=== PATIENT | female | born 1990 | race Caucasian/White ===

== ENCOUNTER 2016-11-30 15:50 | Emergency (ER) | payer BC ==
[2016-11-30 16:02] VITALS: BP 120/71
--- NOTE | 2016-11-30 17:00 | UC ---
Throat Pain/Nasal Celestine HPI - HPI Summary HPI Summary: 26 y/o female presents to the urgent care c/o sore throat since yesterday. Pt states difficulty swallowing, sabrina is 6/10 associated with RODRIGUEZ. She took tylenol this morning and she felt better. Pt denies cough, fever, SOB, chest pain, N/V/ D. She is a teacher. - History of Current Complaint Chief Complaint: UCRespiratory Stated Complaint: SORE THROAT Time Seen by Provider: 11/30/16 16:53 Hx Obtained From: Patient Hx Last Menstrual Period: 11/16/16 ?: No Onset/Duration: Gradual Onset, Lasting Days - 1 day Severity: Moderate Pain Intensity: 6 Pain Scale Used: 0-10 Numeric Cough: None Associated Signs & Symptoms: Positive: Dysphagia. Negative: Sinus Discomfort, Nasal Discharge, Fever - Epiglottits Risk Factors Epiglottis Risk Factors: Negative - Allergies/Home Medications Allergies/Adverse Reactions: Allergies Allergy/AdvReac Type Severity Reaction Status Date / Time Penicillins Allergy Anaphylatic Verified 11/30/16 15:56 Shock PMH/Surg Hx/FS Hx/Imm Hx Previously Healthy: Yes - Surgical History Surgical History: Yes Surgery Procedure, Year, and Place: ONE C-SECT - Family History Known Family History: Positive: Diabetes - Social History Occupation: Employed Full-time Lives: With Family Alcohol Use: Rare Substance Use Type: None Smoking Status (MU): Never Smoked Tobacco - Immunization History Most Recent Influenza Vaccination: NOT IN 2016 Review of Systems Constitutional: Negative Skin: Negative Eyes: Negative ENT: Sore Throat Respiratory: Negative Cardiovascular: Negative Gastrointestinal: Negative Genitourinary: Negative Motor: Negative Neurovascular: Negative Musculoskeletal: Negative Neurological: Headache Psychological: Negative All Other Systems Reviewed And Are Negative: Yes Physical Exam Triage Information Reviewed: Yes Appearance: Well-Appearing, No Pain Distress, Well-Nourished, Obese Vital Signs: Initial Vital Signs Temp 97.9 F 11/30/16 15:58 Pulse 88 11/30/16 15:58 Resp 18 11/30/16 15:58 BP 120/71 11/30/16 15:58 Pulse Ox 98 11/30/16 15:58 Vital Signs Reviewed: Yes Eye Exam: Normal Eyes: Positive: Conjunctiva Clear - PERRLA, EOMI ENT Exam: Normal ENT: Positive: Normal ENT inspection, Hearing grossly normal, Pharyngeal erythema - mild exudate, TMs normal, Tonsillar swelling, Tonsillar exudate - B/L Dental Exam: Normal Neck exam: Normal Neck: Positive: Supple, Nontender, No Lymphadenopathy Respiratory Exam: Normal Respiratory: Positive: Chest non-tender, Lungs clear, Normal breath sounds Cardiovascular Exam: Normal Cardiovascular: Positive: RRR, No Murmur, Pulses Normal Abdominal Exam: Normal Abdomen Description: Positive: Nontender, Soft. Negative: CVA Tenderness (R), CVA Tenderness (L) Bowel Sounds: Positive: Present Musculoskeletal Exam: Normal Musculoskeletal: Positive: Strength Intact, ROM Intact, No Edema Neurological Exam: Normal Psychological Exam: Normal Skin Exam: Normal Throat Pain/Nasal Course/Dx - Course Course Of Treatment: 26 y/o female presents to the urgent care c/o sore throat since yesterday. Pt states difficulty swallowing, sabrina is 6/10 associated with RODRIGUEZ. She took tylenol this morning and she felt better. Pt denies cough, fever, SOB, chest pain, N/V/D. She is a teacher. Hx obtained. Rapid strep ordered, result: negative. Viral pharyngitis.Pt Rx ibuprofen PO to alleviates symptoms of pain and swelling. Advised on hand washing to avoid spreading. If symptoms do not improve or worsen advised to return to the urgent care or f/u with her PCP for further evaluation and treatment. Pt understood and agreed - Differential Dx/Diagnosis Differential Diagnosis/HQI/PQRI: Influenza, Laryngitis, Mononucleosis, Pharyngitis, Sinusitis, Tonsillitis, URI Provider Diagnoses: 1- Viral pharyngitis Discharge - Discharge Plan Condition: Stable Disposition: HOME Prescriptions: Ibuprofen TAB* [Motrin TAB* 800 MG] 800 mg PO Q6H #20 tab Patient Education Materials: Pharyngitis (ED) Referrals: Luis Garces,Luis [Medical Doctor] - 3 Days Additional Instructions: 1-Please take ibuprofen PO q6-8hrs prn as instructed after meals to alleviate pain and swelling.Rest, increase fluids and eat well. Avoid strenuous exercise. 2-If symptoms do not improve or worsen please return to the urgent care or f/u with your PCP for further evaluation and treatment.
== END 2016-11-30 17:07 | disposition home or self-care (01) ==
LOC: UCCORT 15:50
DX: J02.9 Acute pharyngitis, unspecified (principal); Z88.0 Allergy status to penicillin
CPT/HCPCS: 87651; 99212; G0463

== ENCOUNTER 2017-11-30 18:03 | Emergency (ER) | payer BC ==
[2017-11-30 19:14] VITALS: BP 122/75
--- NOTE | 2017-11-30 19:50 | UC ---
UC General HPI - HPI Summary HPI Summary: diarrhea x 6 to 7 days, most recently with bright red blood with stool. Has been passing 6 to 7 stools per day associated with diffuse abdominal pain, no vomiting. Well water at home, last tested 2 years ago, but no family members have been ill. Drinking well, voiding well, no fever or headache. No fever. No travel. No recent use of antibiotics, no infectious contacts. 10 pounds weight loss in the past 3 months with intent. appetite normal. FH neg for IBD - History of Current Complaint Chief Complaint: UCGI Stated Complaint: DIARRHEA Time Seen by Provider: 11/30/17 19:31 Hx Obtained From: Patient Hx Last Menstrual Period: "3 WEEKS AGO" Onset/Duration: Sudden Onset, Lasting Days - 7 Timing: Intermittent Episodes Lasting: - minutes Onset Severity: Moderate Pain Intensity: 6 - Allergy/Home Medications Allergies/Adverse Reactions: Allergies Allergy/AdvReac Type Severity Reaction Status Date / Time Penicillins Allergy Anaphylatic Verified 11/30/17 18:59 Shock Home Medications: Home Medications Norethindrone-Ethinyl Estrad [Necon 0.5-35-28 Tablet] 1 tab DAILY 11/30/17 [ History Confirmed 11/30/17] ValACYclovir (*) [Valtrex 500 mg (*)] 250 mg DAILY 11/30/17 [History Confirmed 11/30/17] PMH/Surg Hx/FS Hx/Imm Hx Previously Healthy: Yes - Surgical History Surgical History: Yes Surgery Procedure, Year, and Place: C-SECT - Family History Known Family History: Positive: Diabetes, Other Family History: Neg history of ulcerative colitis or Crohn's disease. - Social History Occupation: Employed Full-time Lives: With Family Alcohol Use: Occasionally Substance Use Type: None Smoking Status (MU): Never Smoked Tobacco - Immunization History Most Recent Influenza Vaccination: NOT IN 2017 Most Recent Tetanus Shot: UTD Review of Systems Constitutional: Negative Skin: Negative Eyes: Negative ENT: Negative Respiratory: Negative Cardiovascular: Negative Gastrointestinal: Abdominal Pain, Diarrhea Genitourinary: Negative Motor: Negative Neurovascular: Negative Musculoskeletal: Negative Neurological: Negative Psychological: Negative Is Patient Immunocompromised?: No All Other Systems Reviewed And Are Negative: Yes Physical Exam Triage Information Reviewed: Yes Appearance: Well-Appearing, No Pain Distress, Obese Vital Signs: Initial Vital Signs Temp 97.8 F 11/30/17 19:04 Pulse 78 11/30/17 19:04 Resp 16 11/30/17 19:04 BP 122/75 11/30/17 19:04 Pulse Ox 100 11/30/17 19:04 ENT: Positive: Pharynx normal Neck: Positive: Supple, Nontender, No Lymphadenopathy Respiratory: Positive: Lungs clear, Normal breath sounds Cardiovascular: Positive: RRR, No Murmur Abdomen Description: Positive: No Organomegaly, Soft, Other: - mild diffuse tenderness without guarding or rebound. Negative: Distended, Guarding Bowel Sounds: Positive: Hypoactive Musculoskeletal Exam: Normal Neurological Exam: Normal Psychological Exam: Normal Skin Exam: Normal Course/Dx - Course Course Of Treatment: imodium, begin diagnositic testing. - Differential Dx - Multi-Symptom Provider Diagnoses: acute diarrhea, prolonged. Discharge - Sign-Out/Discharge Documenting (check all that apply): Patient Departure All imaging exams completed and their final reports reviewed: No Studies - Discharge Plan Condition: Stable Disposition: HOME Patient Education Materials: Acute Diarrhea (ED), Nutrition Tips for Relief of Diarrhea (ED) Referrals: Franck Aguirre MD [Primary Care Provider] - Additional Instructions: Lab work to look for inflammation and blood count, kidney and liver functions has been done. Continue eating, with review of tips for eating with diarrhea. You can use imodium 2mg taking 2 tablets after the next loose stool, and up to 4 tablets per day. Please schedule visit with Dr. Aguirre for early next week to review labs. Stool testing takes about 36 hours after submission of samples. Lab results will be available tomorrow afternoon. - Billing Disposition and Condition Condition: STABLE Disposition: Home
[2017-12-01 10:48] LABS: Hematocrit 41 % (35-47); Hemoglobin 13.5 g/dl (12.0-16.0); Mean Corpuscular HGB Conc 33 g/dl (31-36); Mean Corpuscular Hemoglobin 32 pg (27-31); Mean Corpuscular Volume 95 fL (80-97); Red Blood Count 4.27 10^6/ul (4.00-5.40); Red Cell Distribution Width 13 % (10.5-15); White Blood Count 11.1 10^3/ul (3.5-10.8)
[2017-12-01 11:17] LABS: ABS Basophils 0.1 10^3/ul (0-0.2); ABS Eosinophils 0.3 10^3/ul (0-0.6); ABS Lymphocytes 3.9 10^3/ul (1.0-4.8); ABS Monocytes 0.9 10^3/ul (0-0.8); ABS Neutrophils 5.9 10^3/ul (1.5-7.7); ABS Nucleated RBC 0 10^3/ul; Eosinophil % 2.7 % (0-6); Lymphocyte % 35.5 % (25-47); Mean Platelet Volume 9.7 um3 (7.4-10.4); Nucleated Red Blood Cells % 0.3; Platelet Count 330 10^3/ul (150-450)
[2017-12-01 11:18] LABS: EGFR Non-African American 83.6 (>60)
--- NOTE | 2017-12-01 21:49 | UC ---
- Progress Note Progress Note: + c diff -some other cultures are pending -STOP immodium -needs to take flagyl 500mgs tid x 14 days. do not drink ETOH. -this is very contagious by direct contact. wash hands thoroughly Discharge - Sign-Out/Discharge Documenting (check all that apply): Post-Discharge Follow Up All imaging exams completed and their final reports reviewed: No Studies - Discharge Plan Condition: Stable Disposition: HOME Patient Education Materials: Acute Diarrhea (ED), Nutrition Tips for Relief of Diarrhea (ED) Referrals: Franck Aguirre MD [Primary Care Provider] - Additional Instructions: Lab work to look for inflammation and blood count, kidney and liver functions has been done. Continue eating, with review of tips for eating with diarrhea. You can use imodium 2mg taking 2 tablets after the next loose stool, and up to 4 tablets per day. Please schedule visit with Dr. Aguirre for early next week to review labs. Stool testing takes about 36 hours after submission of samples. Lab results will be available tomorrow afternoon. - Billing Disposition and Condition Condition: STABLE Disposition: Home
== END 2017-11-30 20:29 | disposition home or self-care (01) ==
LOC: UCCORT 18:03
DX: R19.7 Diarrhea, unspecified (principal); Z88.0 Allergy status to penicillin
CPT/HCPCS: 36415; 80053; 84443; 85025; 86140; 87045; 87046; 87328; 87329; 87493; 87899; 99211; G0463

== ENCOUNTER 2017-12-17 07:30 | Emergency (ER) | payer BC ==
[2017-12-17 07:47] VITALS: BP 114/72
--- NOTE | 2017-12-17 07:56 | UC ---
Throat Pain/Nasal Celestine HPI - HPI Summary HPI Summary: 27-year-old female with no past medical history presents with 2 days of fever and sore throat not associated with cough. Patient measured fever of 101 at home last night, not relieved with Tylenol. Patient has multiple sick contacts , works at a high school. No prior episodes. No vomiting or worsening factors. Small amount of soreness with swallowing, has not greatly affected by mouth intake. No trouble breathing, no wheezing - History of Current Complaint Stated Complaint: SORE THROAT,FEVER Time Seen by Provider: 12/17/17 07:36 Hx Last Menstrual Period: "3 WEEKS AGO" - Allergies/Home Medications Allergies/Adverse Reactions: Allergies Allergy/AdvReac Type Severity Reaction Status Date / Time Penicillins Allergy Anaphylatic Verified 12/17/17 07:39 Shock Home Medications: Home Medications Ibuprofen TAB* [Advil TAB*] 600 mg PO Q8H PRN 12/17/17 [History Confirmed ] PMH/Surg Hx/FS Hx/Imm Hx - Additional Past Medical History Additional PMH: No history of strep in the past, no history of diabetes, no other past medical history Previously Healthy: Yes - Surgical History Surgical History: Yes Surgery Procedure, Year, and Place: C-SECT - Family History Known Family History: Positive: Diabetes, Other Family History: Neg history of ulcerative colitis or Crohn's disease. - Social History Alcohol Use: Occasionally Substance Use Type: None Smoking Status (MU): Never Smoked Tobacco - Immunization History Most Recent Influenza Vaccination: NOT IN 2017 Most Recent Tetanus Shot: UTD Review of Systems Constitutional: Fever, Fatigue Skin: Negative Eyes: Negative ENT: Sore Throat Respiratory: Negative Cardiovascular: Negative Gastrointestinal: Negative Genitourinary: Negative All Other Systems Reviewed And Are Negative: Yes Physical Exam - Summary Physical Exam Summary: Gen: alert, in no acute distress HEENT: EOMI, normocephalic, atruamatic, bilateral tonsillar enlargement and exudates visualized Neck: supple, tender cervical lymphadenopathy CV: Normal s1 s2, no murmurs Resp: normal breath sounds b/l GI: no tenderness, no masses Musculoskeletal: normal ROM all 4 extremities Skin: no rash Lymph: Tender anterior cervical lymphadenopathy Psych: appropriate affect, oriented Triage Information Reviewed: Yes Throat Pain/Nasal Course/Dx - Course Course Of Treatment: Rapid strep negative, antibiotic treatment not indicated at this time, patient given instructions for supportive care, instructed to return for any worsening or concerning symptoms and to see primary care physician promptly. Agrees to and understands discharge instructions. In no acute distress. - Differential Dx/Diagnosis Provider Diagnoses: Sore throat Discharge - Sign-Out/Discharge Documenting (check all that apply): Patient Departure All imaging exams completed and their final reports reviewed: No Studies - Discharge Plan Condition: Stable Disposition: HOME Prescriptions: Benzocaine/Menthol HANNAH* [Chloraseptic HANNAH*] 1 hannah MT Q2H PRN #12 lozenge PRN Reason: Sore Throat Patient Education Materials: Pharyngitis (ED) Forms: *Work Release Referrals: Franck Aguirre MD [Primary Care Provider] - Additional Instructions: PLEASE MAKE AN APPOINTMENT TO BE SEEN BY A PRIMARY CARE DOCTOR WITHIN 1 WEEK - Billing Disposition and Condition Condition: STABLE Disposition: Home
== END 2017-12-17 08:16 | disposition home or self-care (01) ==
LOC: UCCORT 07:30
DX: J02.9 Acute pharyngitis, unspecified (principal); Z88.0 Allergy status to penicillin
CPT/HCPCS: 87651; 99212; G0463

== ENCOUNTER 2018-06-05 07:17 | Emergency (ER) | payer BC ==
--- OUTSIDE RECORDS SUMMARY | 2018-06-05 07:25 | XMS REPORT | Continuity of Care Document ---
:1990 External Reference #:[id number] Author Name Patsy Allen PA Address [phone] [facility] [place] [address] Care Team Providers Name Role Phone Rodger Mclean M.D. Care Team Information Principal Technical Writer Unavailable Patsy Allen PA Primary Care Physician Unavailable Payers Date Identification Numbers Payment Provider Subscriber Policy Number: [id number] Jelena Ngoc Rushing PayID: [id number] [address] [address] [place] [address] Expires: 2016 Policy Number: Angel/Grisel Gonzalez Ngoc Rushing [id number] PayID: [id number] [address] [place] [address] Advance Directives Description No Information Available Problems Description No Information Family History Date Family Member(s) Observation Comments Father Diabetes Father Stroke Mother Depression Mother Anxiety : (age 82 Paternal Grandfather due to Old-Age Years) Paternal Grandmother Heart Attack : (age 57 Maternal Grandfather due to Heart Disease Years) : (age 68 Maternal Grandmother due to Premature Heart Years) Attack Social History Type Date Description Comments Sex Unknown Lives With 31 Years Solo Lives With 3 Years Son Moe Diet Healthy, Well Balanced Reduced carbs nearly completely. No soda or juice. Drinks water. 1 cup of coffee a day. Salad for lunch. Protein and vegetable for dinner. Yogurt and fruit for breakfast. Occupation Currently Working [employer] ETOH Use Occasionally consumes alcohol Tobacco Use Start: Unknown Patient has never smoked Smoking Status Reviewed: 05/23/18 Patient has never smoked Enjoy Exercising Patient enjoys exercising Walks daily Bowflex TM 45 minutes 5 days a week. Allergies, Adverse Reactions, Alerts Date Description Reaction Status Severity Comments 01/17/2018 Penicillin Active hives and throat closes Medications Medication Date Status Form Strength Qnty SIG Indications Ordering Provider Escitalopram 05/23/ Active Tablets 10mg 30tabs 1/2 by mouth F41.9 Felipe Oxalate 2019 daily during MD Anny first week, then increase to 1 by mouth every day Magnesium 05/23/ Active Tablets 400mg 90tabs 1 by mouth R51 Felipe2018 every day MD Anny for the prevention of headache Vitamin B-2 05/23/ Active Tablets 100mg 90tabs 1 by mouth R51 Felipe2018 every day MD Anny for prevention of headache Women's One A 01/17/ Active 1 cap po 2017 once a day MD Anny Multivitamin Valacyclovir / Active Tablets 1gm Unknown HCL 0000 Nortrel 135 / Active Tablets 1-35mg-mcg Earl (28) 0000 CONSTANTINO Modi Immunizations Description No Information Available Vital Signs Date Vital Result Comment 05/23/2018 4:28pm BP Systolic 126 mmHg BP Diastolic 78 mmHg Heart Rate 78 /min Respiratory Rate 18 /min Height 64 inches 5'4" Weight 263.00 lb BMI (Body Mass Index) 45.1 kg/m2 BSA (Body Surface Area) 2.20 m2 Harts body weight in kilograms 54 kg O2 % BldC Oximetry 97 % Ra 01/17/2018 2:02pm BP Systolic Sitting Right Arm 112 mmHg BP Diastolic Sitting Right Arm 76 mmHg Body Temperature 98.5 F Heart Rate 108 /min Height 64 inches 5'4" Weight 261.25 lb BMI (Body Mass Index) 44.8 kg/m2 BSA (Body Surface Area) 2.19 m2 Harts body weight in kilograms 54 kg O2 % BldC Oximetry 95 % 05/24/2007 3:22pm Height 63.5 inches 5'3.50" Weight 155.00 lb Results Test Date Facility Test Result H/L Range Note CBC 05/03/2018 [facility] [address] White Blood 8.4 K/uL N 3.1-10.7 1 W/Automated [address] [place] [address] [phone] Red Blood Count 4.08 M/uL N 3.90-5.40 Hemoglobin 12.9 gm/dL N 11.6-15.8 Hematocrit 38.7 % N 36.0-46.1 Mean Cell Volume 94.9 fl N 80.9-99.0 Mean Corpuscular HGB 31.6 pg N 25.9-32.7 Mean Corpuscular HGB Conc 33.3 g/dL N 30.8-34.3 Platelet Count 380 K/uL High 155-360 Red Cell Distri Width SD 40.9 fl N 36-47 Red Cell Distri Width %CV 12.0 % N 11.7-14.4 Mean Platelet Volume 11.2 fL N 8.9-12.4 Neut% 50.9 % N 40.4-72.8 Lymph % 41.2 % N 20.0-42.0 Davison % 6.8 % N 4.3-13.2 Eo% 0.9 % N 0.0-6.6 Bas% 0.2 % N 0.0-1.1 Neut# 4.29 K/uL N 1.8-7.0 Lymph # 3.47 K/uL N 1.0-4.0 Davison # 0.57 K/uL N 0.3-0.9 Eos # 0.08 K/uL N 0.0-0.5 Baso # 0.02 K/uL N 0.0-0.1 Comprehensive Metabolic 05/03/2018 [facility] [address] Glucose 93 mg/dL N 74 -106 Panel [address] [place], [place] [id number] [phone] BUN 9 mg/dL N 7-18 Creatinine 0.8 mg/dL N 0.6-1.3 Glom Filtration Rate, Estimate >60 mL/min >60 If >60 mL/min >60 2 BUN/Creat 11.2 ratio Sodium 141 mmol/L N 136-145 Potassium 3.8 mmol/L N 3.5-5.1 Chloride 107 mmol/L N 98-107 Carbon Dioxide 26 mmol/L N 21-32 Anion Gap 8 mEq/L N 8-16 Calcium 7.9 mg/dL Low 8.5-10.1 Total Protein 6.9 g/dL N 6.4-8.2 Albumin 3.4 g/dL N 3.4-5.0 Globulin 3.5 g/dL N 1.9-4.3 Alb/Glob 1.0 ratio Bilirubin,Total 0.4 mg/dL N 0.2-1.0 Sgot/Ast 17 U/L N 15-37 SGPT/Alt 28 U/L N 12-78 Alkaline Phosphatase 61 U/L N 45-117 Glycohemoglobin A1c 05/03/[address] Glycohemoglobin 5.2 % N 4.2-6.3 3 [address] [facility] (A1c) [place] [address] [phone] eAG 103 mg/dL LDL Cholesterol Profile 05/03/[address] Cholesterol 172 mg/dL <[address] [place] [address] [phone] Triglycerides 104 mg/dL <150 5 HDL Cholesterol 62 mg/dL >40 6 LDL-Cholesterol 89 mg/dL < 100 7 Laboratory test 05/03/[address] Thyroid Stim 1.71 uIU/mL N 0.30-4.[address] [place] [address] [place] [address] [phone] Urine Dipstick 01/17/2018 [facility] Ua Color yellow Yellow Ua Clarity cloudy Clear Ua Leuko moderate Negative Ua Nitrite negative Negative Ua Urobilinogen 0.2 0.2 - 1.0 E.U./dL Ua Protein negative Negative Ua PH 6.5 6.5-7.5 Ua Blood trace Negative Ua Specific [place] 1.020 1.010-1.030 Ua Ketones negative Negative Ua Bilirubin negative Negative Ua Glucose negative Negative 1 E66.9 2 Note: Persistent reduction for 3 months or more in an eGFR <60 mL/min/1.73 m2 defines CKD. Patients with eGFR values >/=60 mL/min/1.73 m2 may also have CKD if evidence of persistent proteinuria is present. The original MDRD equation for estimated GFR is not valid for patients less than 18 years of age. Additional information may be found at www.kdoqi.org. 3 Elevated levels of HbA1c suggest the need for more aggressive treatment of glycemia. The [place] [employer] Association recommends that a primary goal of therapy should be a HbA1c of <7% and that physicians should re-evaluate the treatment regimen in patients with HbA1c values consistently >8%. 4 Reference Guidelines*: Desirable: ........... < 200 mg/dL Borderline High: ..... 200-239 mg/dL High: ................ >=240 mg/dL * The National Cholesterol Education Program (NCEP) 5 Reference Guidelines*: Normal: ............. < 150 mg/dL Borderline High: .... 150-199 mg/dL High: ............... 200-499 mg/dL Very High: .......... > 500 mg/dL * Source: National Cholesterol Education Program (NCEP) 6 Reference Guidelines*: Low HDL: ..... < 40 mg/dL Normal: ..... 40-60 mg/dL Desirable: ... > 60 mg/dL *The National Cholesterol Education Program(NCEP) 7 Reference Guidelines*: Optimal:........... <100 mg/dL Near Optimal....... 100-129 mg/dL Borderline High.... 130-159 mg/dL High............... 160-189 mg/dL Very High.......... >=190 mg/dL * Source: National Cholesterol Education Program (NCEP) Procedures Date Code Description Status 01/25/2014 44573 Epidural Or Subarachnoid Injection Cervical Or Thoracic Completed 01/25/2014 93394 Section Only Completed 01/25/2014 49453 Anesthesia, Delivery Completed Encounters Description No Information Available Plan of Treatment Future Appointment(s):06/20/2018 4:30 pm - Patsy Allen PA at [facility] RD05/23/2018 - Patsy Allen, PAE66.9 Obesity, unspecifiedComments :Healthy diet and regular exercise have not been working. I will set you up with Dr. Ramirez's weight clinic.Referral:Jose Ramirez MD, superintendent tests/Phys/EcppeP30.9 Anxiety disorder, unspecifiedNew Medication:Escitalopram Oxalate 10 mg - 1/2 by mouth daily during first week, then increase to 1 by mouth everydayComments: Start the Lexapro. Consider restarting counselling. In the mean time, use some relaxation tapes or apps.R51 HeadacheNew Medication:Magnesium 400 mg - 1 by mouth every day for the prevention of headacheVitamin B-2 100 mg - 1 by mouth every day for prevention of headacheComments:Headache can be triggered by a variety of factors. These include, fatigue, stress, dehydration and caffeine or caffeine withdrawal. Try to stay well hydrated, well rested and reduce your stress. Use the medication as directed. Try not to use OTC analgesics too frequently. This can lead to rebound headache.Follow up:1 month
[2018-06-05 07:32] VITALS: BP 123/74
--- NOTE | 2018-06-05 07:41 | UC ---
UC General HPI - HPI Summary HPI Summary: States has had a sore throat for the past 6 days. Low grade temp off and on - Tmax: 99.9. +Productive cough. No congestion. No N/V/D. +body aches. No abdominal pain. No urinary issues. Sore to eat solid food but tolerating liquids fine. Works in a high school. PMHx: None Meds; Reviewed - History of Current Complaint Chief Complaint: UCRespiratory Stated Complaint: SORE THROAT FEVER Time Seen by Provider: 06/05/18 07:32 Hx Last Menstrual Period: 05/18/18 Pain Intensity: 8 - Allergy/Home Medications Allergies/Adverse Reactions: Allergies Allergy/AdvReac Type Severity Reaction Status Date / Time Penicillins Allergy Anaphylatic Verified 06/05/18 07:27 Shock PMH/Surg Hx/FS Hx/Imm Hx Previously Healthy: Yes - Surgical History Surgical History: Yes Surgery Procedure, Year, and Place: C-SECT - Family History Known Family History: Positive: Diabetes, Other Family History: Neg history of ulcerative colitis or Crohn's disease. - Social History Alcohol Use: Occasionally Substance Use Type: None Smoking Status (MU): Never Smoked Tobacco - Immunization History Most Recent Influenza Vaccination: NOT IN 2017 Most Recent Tetanus Shot: UTD Review of Systems All Other Systems Reviewed And Are Negative: Yes Constitutional: Positive: Fever ENT: Positive: Sore Throat Respiratory: Positive: Cough Physical Exam Triage Information Reviewed: Yes Appearance: Well-Appearing Vital Signs: Initial Vital Signs Temp 97.9 F 06/05/18 07:29 Pulse 109 06/05/18 07:29 Resp 18 06/05/18 07:29 BP 123/74 06/05/18 07:29 Pulse Ox 98 06/05/18 07:29 Vital Signs Reviewed: Yes Eyes: Positive: Conjunctiva Clear ENT: Positive: Pharyngeal erythema, TMs normal, Tonsillar swelling, Uvula midline Neck: Positive: Supple, Enlarged Nodes @ - anterior cervical chain Respiratory: Positive: Lungs clear, Normal breath sounds Cardiovascular: Positive: RRR, No Murmur Course/Dx - Course Course Of Treatment: This is a 27 yr old previous healthy female c/o sore throat and cough for the past several days. Assessment. Nontoxic appearing. Rapid strep: Negative. Dx: Viral pharyngitis. Plan. Strep throat test is negative. Continue supportive care. Continue rest, fluids, ibuprofen as needed for pain. If symptoms persist or worsen, follow up with PCP or return to urgent care - Diagnoses Provider Diagnosis: Pharyngitis Discharge - Sign-Out/Discharge Documenting (check all that apply): Patient Departure All imaging exams completed and their final reports reviewed: No Studies - Discharge Plan Condition: Good Disposition: HOME Patient Education Materials: Pharyngitis (ED) Referrals: Patsy Allen PA [Primary Care Provider] - Additional Instructions: Strep throat test is negative Continue supportive care Continue rest, fluids, ibuprofen as needed for pain If symptoms persist or worsen, follow up with PCP or return to urgent care - Billing Disposition and Condition Condition: GOOD Disposition: Home
== END 2018-06-05 08:22 | disposition home or self-care (01) ==
LOC: UCCORT 07:17
DX: J02.9 Acute pharyngitis, unspecified (principal); Z88.0 Allergy status to penicillin
CPT/HCPCS: 87651; 99211; G0463

== ENCOUNTER 2022-05-25 08:37 | Inpatient (IN) ==
[~2022-05-25 08:37] MED LIST: Buffered Lidocaine 1% SYRIN 1 ml INTRADERM ONE; HYDROcodone/ACETAMIN 5/325 mg TAB PO PRN; Lactated Ringers 1000 ml BAG 1,000 ML IV SCH; Naloxone 0.4 mg VIAL 0.4 mg/ml 1 ml VIAL IV PRN; Ondansetron 4 mg VIAL 2 MG/ML 2 ml VIAL IV PRN
[2022-05-25] MEDS ORDERED: Heparin 5000 UNITS/ML 1 mL VIAL ONE (09:00)
[2022-05-25] MEDS ORDERED: Scopolamine 1 mg/72hr PATCH ONE (09:00)
[2022-05-25] MEDS ORDERED: Clindamycin 900 MG/D5W BAG 900 MG/50 ML BAG IVPB ONE (09:00)
[2022-05-25] MEDS ORDERED: Bupivacaine 0.25% EPI 200,000 30 ML SDV ONE (10:41)
[2022-05-25] MEDS ORDERED: Methylene Blue 0.5 % 50 MG/10 ML AMP IV ONE (10:41)
[2022-05-25] MEDS ORDERED: Dexamethasone IV 4 MG/ML VIAL 1 ml VIAL ONE ×2 (10:43→12:19)
[2022-05-25] MEDS ORDERED: Ondansetron 4 mg VIAL 2 MG/ML 2 ml VIAL ONE ×4 (10:43→14:20)
[2022-05-25] MEDS ORDERED: Lidocaine 2% PF 5 ML VIAL ONE (10:43)
[2022-05-25] MEDS ORDERED: Propofol 10 MG/ML 20 ML BTL ONE ×2 (10:43→13:09)
[2022-05-25] MEDS ORDERED: fentaNYL 250 mcg/5 ml 50 MCG/ML 5 ml VIAL (250 MCG) ONE (10:44)
[2022-05-25] MEDS ORDERED: Rocuronium 50 mg VIAL 10 mg/ml 5 ml VIAL (50 mg) ONE ×2 (10:44→12:44)
[2022-05-25] MEDS ORDERED: Midazolam 2 mg/2 ml VIAL 1 mg/ml 2 ml VIAL (2 mg) ONE (10:44)
[2022-05-25] MEDS ORDERED: Bupivacaine 0.25% w/EPI 10 ML SDV ONE (11:40)
[2022-05-25] MEDS ORDERED: HYDROmorphone 0.5 MG/0.5 ML SYRINGE IV SLOW PU PRN (13:58)
[2022-05-25] MEDS ORDERED: HYDROcodone/ACET. 7.5/325 LIQ 15 ML UDC PO PRN (13:58)
[2022-05-25] MEDS ORDERED: Ondansetron 4 mg VIAL 2 MG/ML 2 ml VIAL IV PRN (13:58)
[2022-05-25] MEDS ORDERED: fentaNYL 100 mcg/2 ml 50 MCG/ML VIAL ONE ×2 (14:26→15:01)
[2022-05-25] MEDS: fentaNYL 100 mcg/2 ml 50 MCG/ML VIAL IV PRN ×7 (14:27→15:26)
[2022-05-25] MEDS ORDERED: Dextrose 50% Syringe 50 ml 25 GM/50 ML SYRINGE IV PUSH PRN (14:35)
[2022-05-25] MEDS ORDERED: Dextrose 50% Syringe 50 ml 25 GM/50 ML SYRINGE ONE (14:48)
[2022-05-25] MEDS: Lactated Ringers 1000 ml BAG 1,000 ML IV SCH ×2 (16:40→23:43)
[2022-05-25] MEDS: Heparin 5000 UNITS/ML 1 mL VIAL SUBCUT SCH (21:49)
[2022-05-26] MEDS: Heparin 5000 UNITS/ML 1 mL VIAL SUBCUT SCH ×2 (05:30→14:09)
[2022-05-26] MEDS: Lactated Ringers 1000 ml BAG 1,000 ML IV SCH ×2 (06:37→13:19)
[2022-05-26 15:17] VITALS: BP 103/64
[2022-05-26] MEDS ORDERED: D5W 1/2 NS KCl 20 meq 1000 ml 1,000 ML IV SCH (17:30)
== END 2022-05-26 15:40 | disposition home or self-care (01) | DRG 403 ==
LOC: AA 08:37
PROVIDERS: ADMIT Surgery; ATTEND Surgery